=== PATIENT | female | born 1970 | race Caucasian/White ===

== ENCOUNTER 2018-11-15 07:02 | Day surgery (SDC) | payer OTHER ==
[2018-11-15] MEDS ORDERED: MIDAZOLAM 1 MG/ML 2 ML INJ ×3 (10:00)
[2018-11-15] MEDS ORDERED: FENTAnyl 50 MCG/ML VIAL (10:01)
== END 2018-11-15 12:12 | disposition home or self-care (01) ==
LOC: GIL 07:02
DX: Z12.11 Encounter for screening for malignant neoplasm of colon (principal); K64.8 Other hemorrhoids
CPT/HCPCS: 45378; 84703; 88305